=== PATIENT | male | born 1950 | race Caucasian/White ===

== ENCOUNTER 2019-10-06 03:55 | Inpatient (IN) | payer OTHER, MEDICARE ==
[~2019-10-06] VITALS: Ht 167.6 cm; Wt 58.1 kg
--- NOTE | 2019-10-06 04:00 | NUR ---
PT AAOX4. C/O N/V X2DAYS, "DARK BROWN VOMIT" PT BREATHING EVEN. VSS. PT ON MONITOR AND PULSE OX. AWAITING MD ORDERS.
--- NOTE | 2019-10-06 04:02 | NUR ---
Per patients "My has stage 4 cancer, he has been vomiting black vomit since sunday."
[2019-10-06] MEDS ORDERED: ONDANSETRON HCL/PF 4 MG/2 ML VIAL ONE (04:11)
[2019-10-06] MEDS ORDERED: MORPHINE SULFATE INJ 4 MG/ML DISP.SYRIN ONE (04:12)
[2019-10-06 04:19] LABS: BASOPHILS % (AUTO) 0.2 % (0.0-2.0); EOSINOPHILS % (AUTO) 0.1 % (0.0-6.0); HEMATOCRIT 33 % (39-51); HEMOGLOBIN 11.1 g/dL (13.5-17.5); LYMPHOCYTES % (AUTO) 12.2 % (20.0-44.0); MEAN CORPUSCULAR HGB CONC 34 g/dl (31.0-36.0); MEAN CORPUSCULAR VOLUME 94 fL (80-96); MONOCYTES % (AUTO) 11.7 % (2.0-12.0); NEUTROPHILS # (AUTO) 6.2 /CMM (1.8-8.9); NEUTROPHILS % (AUTO) 75.8 % (43.0-81.0); PLATELET COUNT (AUTO) 227 /CMM (150-450); RED BLOOD CELL COUNT(AUTO) 3.48 MIL/uL (4.5-6.0); WHITE BLOOD COUNT (AUTO) 8.1 K/uL (4.3-11.0)
--- NOTE | 2019-10-06 04:25 | NUR ---
PT BROUGHT TO CT
[2019-10-06] MEDS ORDERED: MORPHINE SULFATE INJ 2 MG/ML DISP.SYRIN IV ONE (04:30)
[2019-10-06] MEDS ORDERED: IV NS 0.9% 1,000 ML BAG IV ONE (04:30)
[2019-10-06] MEDS ORDERED: ONDANSETRON HCL/PF 4 MG/2 ML VIAL IVP ONE (04:30)
[2019-10-06 04:35] LABS: CALCIUM, SERUM 8.9 mg/dL (8.5-10.1); CARBON DIOXIDE 26 mmol/L (21-32); CHLORIDE 103 mmol/L (98-107); CREATININE 1.3 mg/dL (0.6-1.3); GLUCOSE 220 mg/dL (74-106); POTASSIUM 3.2 mmol/L (3.5-5.1); SODIUM SERUM 137 mmol/L (136-145); UREA NITROGEN, BLOOD 56 mg/dL (7-18)
--- NOTE | 2019-10-06 04:37 | NUR ---
PT EBONY BACK FROM CT
[2019-10-06 04:41] LABS: ALANINE AMINOTRANSFERASE 19 U/L (12-78); ALBUMIN 3.1 g/dL (3.4-5.0); ALKALINE PHOSPHATASE 85 U/L (46-116); ASPARTATE AMINOTRANSFERASE 17 U/L (15-37); BILIRUBIN,DIRECT 0.2 mg/dL (0.0-0.2); BILIRUBIN,TOTAL 0.9 mg/dL (0.2-1.0); LIPASE 35 U/L (73-393)
[2019-10-06] MEDS ORDERED: ONDANSETRON HCL/PF 4 MG/2 ML VIAL IVP PRN (05:30)
[2019-10-06] MEDS ORDERED: MORPHINE SULFATE INJ 2 MG/ML DISP.SYRIN IV PRN (05:30)
--- NOTE | 2019-10-06 05:30 | NUR ---
BED ASSIGNMENT 116-1
--- NOTE | 2019-10-06 05:48 | NUR ---
REPORT GIVEN TO SALVADOR FLYNN, FOR DAT.
--- NOTE | 2019-10-06 07:15 | NUR ---
RN NOTES RECEIVED PATIENT AT ABOUT 0605, AWAKE, IN NO APPARENT DISTRESS. ALERT AND ORIENTED. O2SAT 100% ON ROOM AIR TOLERATING WELL. NO COMPLAINT OF PAIN OR DISCOMFORT. VERBALLY ABLE TO COMMUNICATE NEEDS. SKIN INTACT. NEEDS ATTENDED. KEPT CLEAN AND DRY.
[2019-10-06] MEDS: IV D5/0.45 NACL 1,000 ML IV PRN (07:29)
--- NOTE | 2019-10-06 07:30 | NUR ---
MS RN OPENING NOTES RECEIVED PT LYING ON BED,ALERT/ORIENTED X4.ON ROOM AIR,TOLERATING WELL.NO SOB AND ACUTE DISTRESS NOTED.CAN AMBULATE WELL BY SELF.DENIES NAUSEA,VOMITING AND PAIN.IV LINE IS ON LEFT AC G18 WITH IV FLUID IS RUNNING.SITE IS CLEAN,DRY AND INTACT.NO INFILTRATION NOTED.BED IS IN LOW POSITION AND LOCKED,CALL LIGHT IS WITHIN REACH.WILL CONTINUE TO MONITOR THE PT CLOSELY
[2019-10-06] MEDS ORDERED: [UNRECOGNIZED DRUG - CODE] IV (07:47)
[2019-10-06] MEDS ORDERED: TRAS150V IV (07:47)
[2019-10-06 08:00] VITALS: BP 116/69
[2019-10-06] MEDS: PANTOPRAZOLE 40 MG VIAL IV SCH (08:35)
[2019-10-06] MEDS ORDERED: POTASSIUM CL. PREMIX PERIPHER. 50 ML IV SCH (10:30)
--- NOTE | 2019-10-06 11:20 | NUR ---
MS RN NOTES PT PICKED UP TO X-RAY.
[2019-10-06 11:47] LABS: MAGNESIUM 1.6 mg/dL (1.8-2.4); THYROID STIMULATING HORMONE 0.757 uIU/mL (0.358-3.74)
--- NOTE | 2019-10-06 11:50 | NUR ---
MS RN NOTES ORDERED TO INSERT N GTUBE TO ADMINISTER CONTRAST FOR SMALL BOWEL X-RAY,INSERTED AND PT TOLERATED WELL.
[2019-10-06] MEDS ORDERED: BARIUM SULFATE 98% 135 ML SUSP.RECON PO ONE (11:53)
--- NOTE | 2019-10-06 11:54 | NUR ---
MS RN NOTES PHARMACIST SAID THE MEDICINE IM THORAZINE IS NOT AVAILABLE IN PHARMACY,LEFT THE MESSAGE TO .WAITING FOR THE REPLY.
--- NOTE | 2019-10-06 13:17 | NUR ---
MS FLYNN NOTES PT CAME BACK FROM THE X-RAY. Addendum: 10/06/19 at 1409 by KEN KANG RN WITH NG TUBE,PT TOLERATED WELL.
[2019-10-06] MEDS: POTASSIUM CL. PREMIX PERIPHER. 50 ML IV SCH ×4 (13:39→19:42)
[2019-10-06 16:00] VITALS: BP 110/82
--- NOTE | 2019-10-06 18:21 | NUR ---
MS RN CLOSING NOTES PT IS LYING ON BED WITH NG TUBE,WITH IV FLUIDS.FAMILY IS AT BEDSIDE.X-RAY IS GOING THROUGH.PT TOLERATED WELL.STILL ON NPO.RESPIRATION IS EVEN AND NONLABORED.NO SIGNIFICANT CHANGES NOTED IN THE SHIFT.WILL ENDORSE TO CERTIFIED OPTICIAN RN FOR DAT.
--- NOTE | 2019-10-06 18:50 | NUR ---
MS RN NOTES PER DR CARRINGTON(ONCALL FOR ,IR)TOOK OUT THE NG TUBE ,PT TOLERATED WELL.
--- NOTE | 2019-10-06 19:24 | NUR ---
MS RN NOTES RECEIVED PT ON BED. A/O X 4. FAMILY AT BEDSIDE. ON ROOM AIR NO RESPIRATORY DISTRESS NOTED. IV ACCESS ON LAC G18 WITH POTASSIUM RUNNING @ 50CC/HR. HEAD OF BED ELEVATED. SIDE RAILS UP. CALL LIGHT WITHIN REACH. BED ALARM ON. BED IN LOW AND LOCKED POSITION. WILL MONITOR PT CLOSELY
--- NOTE | 2019-10-06 20:10 | NUR ---
MS RN NOTES CALLED PNEUMATIC TUBE OPERATOR FOR MAGNESIUM OF 1.6, PER PNEUMATIC TUBE OPERATOR ONCALL REPLACED WITH 2GM. WILL MONITOR PT CLOSELY.
[2019-10-06] MEDS ORDERED: Magnesium 1GM/D5W 100ML PREMIX PIGGYBACK IV ONE (20:30)
[2019-10-06] MEDS: Magnesium 1GM/D5W 100ML PREMIX 100 ML IV SCH ×2 (20:32→21:35)
--- NOTE | 2019-10-06 21:44 | NUR ---
MS RN NOTES CALLED RADIOLOGY DEPT FOR SMALL BOWEL XR, PER RADIOLOGY LAST XR TAKEN 0, NO MORE XR NEEDED. 2030 PT WANTS TO DRINK AND EAT. WILL FOLLOW UP WITH ONCJOSEPHINE.
[2019-10-06] MEDS ORDERED: ZOLPIDEM TARTRATE 5 MG TABLET PO ONE (22:30)
--- NOTE | 2019-10-06 22:58 | NUR ---
MS FLYNN NOTES PER HAND WRAPPER OPERATOR OKAY TO HAVE SIPS OF WATER FOR NOW, AND AMBIEN 35MG X1. PT STILL NPO, AWAITING SMALL BOWEL XR RESULTS. Addendum: 10/06/19 at 2300 by MARTIR GONZALES RN AMBIEN 5MG.
--- NOTE | 2019-10-06 23:08 | NUR ---
MS RN NOTES PT REFUSED IVF. EXPLAINED RISK AND BENEFITS. PT STILL REFUSED. PER PT RESUME IT IN AM.
[2019-10-07 04:00] VITALS: BP 103/76
[2019-10-07 06:17] VITALS: BP 96/69
[2019-10-07 06:39] LABS: ALBUMIN 2.5 g/dL (3.4-5.0); BASOPHILS % (AUTO) 0.4 % (0.0-2.0); BILIRUBIN,TOTAL 0.5 mg/dL (0.2-1.0); CALCIUM, SERUM 7.9 mg/dL (8.5-10.1); EOSINOPHILS % (AUTO) 1.5 % (0.0-6.0); HEMATOCRIT 22 % (39-51); HEMOGLOBIN 7.7 g/dL (13.5-17.5); LYMPHOCYTES # (AUTO) 0.9 /CMM (0.8-4.8); LYMPHOCYTES % (AUTO) 12.1 % (20.0-44.0); MAGNESIUM 2.1 mg/dL (1.8-2.4); MEAN CORPUSCULAR HGB CONC 35 g/dl (31.0-36.0); MEAN CORPUSCULAR VOLUME 93 fL (80-96); MONOCYTES # (AUTO) 1.3 /CMM (0.1-1.30); NEUTROPHILS # (AUTO) 5.1 /CMM (1.8-8.9); PHOSPHORUS 1.6 mg/dL (2.5-4.9); PLATELET COUNT (AUTO) 180 /CMM (150-450); POTASSIUM 3.5 mmol/L (3.5-5.1); RED BLOOD CELL COUNT(AUTO) 2.41 MIL/uL (4.5-6.0); WHITE BLOOD COUNT (AUTO) 7.4 K/uL (4.3-11.0)
[2019-10-07 07:00] LABS: THYROID STIMULATING HORMONE 0.664 uIU/mL (0.358-3.74)
--- NOTE | 2019-10-07 07:27 | NUR ---
MS RN CLOSING PATIENT IN BED ASLEEP. NO SIGNS OF ANY DISTRESS OR COMPLAINT OF PAIN. PATIENT IS A/O X4. IV RUNNING WITH D51/2NS WITH NO SIGN OF OBSTRUCTION. ALL SAFETY PRECAUTIONS HAVE BEEN APPLIED. ENDORSED PATIENT TO MORNING SHIFT NURSE FOR DAT.
--- NOTE | 2019-10-07 07:58 | NUR ---
MS RN NOTES RECEIVED PT ON BED. RESTING COMFORTABLY IN BED AT THIS TIME ON ROOM AIR NO RESPIRATORY DISTRESS NOTED. IV ACCESS ON LAC G18 WITH IVF ORDERED HEAD OF BED ELEVATED. SIDE RAILS UP. CALL LIGHT WITHIN REACH. BED ALARM ON. BED IN LOW AND LOCKED POSITION. WILL MONITOR PT CLOSELY , STILL NPO TILL FURTHER ORDERS
[2019-10-07 08:00] VITALS: BP 99/65
[2019-10-07 08:22] LABS: NEUTROPHILS % (MANUAL) 68 (42-76)
[2019-10-07 08:23] LABS: LYMPHOCYTES % (MANUAL) 15 % (16-48); MONOCYTES % (MANUAL) 17 % (0-11.0)
[2019-10-07] MEDS: PANTOPRAZOLE 40 MG VIAL IV SCH (08:47)
[2019-10-07] MEDS: IV D5/0.45 NACL 1,000 ML IV PRN (08:48)
--- NOTE | 2019-10-07 09:30 | NUR ---
ms rn note per rain ok to have clear liquid diet aware follow throu result
[2019-10-07] MEDS ORDERED: POTASSIUM PHOSPHATE MM 15 MMOL in IV D5W 250 ML IV SCH (10:00)
[2019-10-07] MEDS: IV NS 0.9% 1,000 ML IV PRN (10:16)
[2019-10-07] MEDS: POTASSIUM PHOSPHATE MM 7.5 MMOL in IV D5W 100 ML IV SCH ×2 (10:26→13:30)
[2019-10-07 10:48] LABS: IRON, SERUM 45 ug/dl (50-175); TOTAL IRON BINDING CAPACITY 227 ug/dl (250-450)
[2019-10-07 11:00] LABS: FERRITIN 126 ng/mL (8-388)
--- NOTE | 2019-10-07 12:00 | NUR ---
MS RN NOTE PER DAVID OK TO HAVE SHOWER
[2019-10-07] MEDS: NYSTATIN (PYXIS) 500,000 UNIT/5 ML ORAL.SUSP PO SCH ×3 (13:06→22:00)
--- NOTE | 2019-10-07 13:09 | NUR ---
CARPET BINDER NOTE DAVID DNP AWARE THAT PATIENT HAS WHITE COLOR TONGUE WITH NEW ORDER GIVEN AT BEDSIDE
--- NOTE | 2019-10-07 15:04 | NUR ---
MS RN NOTE DAVID GUARDADO AWARE MARKY HG TODAY 7.7 WITH ORDER GI CONSULT, SPOKE WITH ZACHARY FLYNN TIRE RECAPPING MACHINE OPERATOR GI GI STATAED THAT WILL COME SOON
[2019-10-07 16:00] VITALS: BP 91/55
--- NOTE | 2019-10-07 16:05 | NUR ---
MS RN NOTE CONSENT FOR EGD OBTAINED ORDERED , AT BEDSIDE
--- NOTE | 2019-10-07 18:02 | NUR ---
MS FLYNN NOTE CALLED ZACHARY FLYNN COLORED LIQUID PLASTIC APPLIER FOR GI CONSULT STATED WILL BE SOON
--- NOTE | 2019-10-07 18:46 | NUR ---
ms rn note brenda lozada dope pourer gi at bedside aware that patient has hiccups stated that will check it out with primary care doctor
--- NOTE | 2019-10-07 18:58 | NUR ---
ms rn note stool for ob collected as ordered ,keep clean dry
[2019-10-07 19:15] LABS: OCCULT BLOOD STOOL POSITIVE (NEGATIVE)
[2019-10-07 20:00] VITALS: BP 90/65
--- NOTE | 2019-10-07 20:31 | NUR ---
RN OPENING NOTES RECEIVED REPORT FROM LUIS FLYNN. PATIENT A/A/O X4, ABLE TO VERBALIZE NEEDS. BREATHING EVEN & UNLABORED, TOLERATING ROOM AIR. DENIES ANY SOB OR DIFFICULTY BREATHING. RADIAL PULSES PRESENT. LEFT AC IV #18 INTACT & PATENT W/ DRESSING CDI & IVF D5 1/2 NS INFUSING WELL @ 100 ML/HR. LEFT CHEST WALL PORT-A-CATH W/ NO S/S OF INFECTION NOTED. DENIES ANY PAIN OR DISCOMFORT @ THIS TIME. SAFETY MEASURES IN PLACE W/ SIDE RAILS UP & CALL LIGHT PLACED WITHIN REACH. ABLE TO AMBULATE INDEPENDENTLY BUT INSTRUCTED TO CALL FOR ASSISTANCE. WILL CONTINUE TO MONITOR.
--- NOTE | 2019-10-07 21:15 | NUR ---
RN NOTES PATIENT REQUESTED FOR AMBIEN BUT NO AMBIEN CURRENTLY ORDERED. SPOKE TO DR. HENNESSY & RECEIVED NEW ORDER FOR AMBIEN 5MG PRN. NEW ORDER NOTED & CARRIED OUT.
[2019-10-07] MEDS: ZOLPIDEM TARTRATE 5 MG TABLET PO PRN (22:01)
[2019-10-08] VITALS (7 sets, daily range): BP systolic 83–111; BP diastolic 50–73
[2019-10-08 05:28] LABS: BASOPHILS % (AUTO) 0.3 % (0.0-2.0); LYMPHOCYTES # (AUTO) 0.6 /CMM (0.8-4.8); LYMPHOCYTES % (AUTO) 11.6 % (20.0-44.0); MEAN CORPUSCULAR HGB CONC 34 g/dl (31.0-36.0); MEAN CORPUSCULAR VOLUME 95 fL (80-96); MONOCYTES % (AUTO) 19.1 % (2.0-12.0); NEUTROPHILS # (AUTO) 3.4 /CMM (1.8-8.9); PLATELET COUNT (AUTO) 150 /CMM (150-450); WHITE BLOOD COUNT (AUTO) 5.2 K/uL (4.3-11.0)
[2019-10-08] MEDS: IV NS 0.9% 1,000 ML IV PRN ×2 (05:28→17:38)
[2019-10-08 05:42] LABS: RED BLOOD CELL COUNT(AUTO) 1.96 MIL/uL (4.5-6.0)
[2019-10-08 05:44] LABS: ALBUMIN 2.4 g/dL (3.4-5.0); BILIRUBIN,TOTAL 0.7 mg/dL (0.2-1.0); CALCIUM, SERUM 7.5 mg/dL (8.5-10.1); HEMATOCRIT 19 % (39-51); HEMOGLOBIN 6.3 g/dL (13.5-17.5); MAGNESIUM 1.9 mg/dL (1.8-2.4); PHOSPHORUS 2.5 mg/dL (2.5-4.9); POTASSIUM 3.3 mmol/L (3.5-5.1); TOTAL PROTEIN, SERUM 4.5 g/dL (6.4-8.2)
--- NOTE | 2019-10-08 05:45 | NUR ---
RN NOTES PATIENT'S H/H = 6.3. RELAYED RESULTS TO DR. HENNESSY & RECEIVED NEW ORDER TO TRANSFUSE 1 UNIT PRBC & RECHECK H/H 2 HOURS AFTER. NEW ORDERS NOTED & CARRIED OUT.
[2019-10-08 06:13] LABS: EOSINOPHILS % (MANUAL) 2 % (0-4); NEUTROPHILS % (MANUAL) 72 (42-76)
[2019-10-08 06:14] LABS: MONOCYTES % (MANUAL) 12 % (0-11.0)
[2019-10-08 06:15] LABS: LYMPHOCYTES % (MANUAL) 13 % (16-48)
--- NOTE | 2019-10-08 07:00 | NUR ---
RN MS OPENING NOTES PATIENT RECEIVED FROM PM SHIFT. PATIENT IS ASLEEP BUT EASILY AROUSED WITH TOUCH AND NAME . PATIENT IS AO X4 . BREATHING UN [place], TOLERATING ROOM AIR. PATIENT DENYIES ANY SOB OR DIFFICULTY BREATHING . PATIENT LEFT AC 18 W/ DRESSING CDI AND IVF INFUSION WELL AT 100 ML/HR . LEFT CHEST WALL PORT A CATH WITH NO SIGNS OF INFECTION NOTED . PATIENT DENIES ANY PAIN OR DISCOMFORT. SAFETY MEASURES IN PLACE. CALL LIGHT WITH IN REACH SAFETY MAINTAINED WILL CONTINUE TO MONITOR
--- NOTE | 2019-10-08 07:30 | NUR ---
MS CLOSING NOTES PATIENT RECEIVED BY PM SHIFT. PATIENT IS AWAKE. A0 X4 PATIENT IN ON ROOM AIR TOLERATING. NO SIGNS OF RESPIRATORY DISTRESS PATIENT DENIES SOB. DURING SHIFT PATIENT RECIVED 1 UNIT OF BLOOD 6.3 - TO 8.0 . PATIENTS SHOWS NO SIGNS ACTIVE BLEEDING . PATIENT WAS ALSO TOLERATING CLEAR LIQUID DIET WELL. PATIENT IS COOPERATIVE WITH CARE AND TREATMENT MANAGEMENT. PATIENTS BED LOWEST POSITON, SAFETY MAINTAINED AND CALL LIGHT WITH IN REACH
[2019-10-08] MEDS: NYSTATIN (PYXIS) 500,000 UNIT/5 ML ORAL.SUSP PO SCH ×4 (08:44→20:26)
[2019-10-08] MEDS: PANTOPRAZOLE 40 MG VIAL IV SCH (08:44)
[2019-10-08] MEDS ORDERED: POTASSIUM PHOSPHATE MM 7.5 MMOL in IV D5W 100 ML IV SCH ×2 (10:30→10:45)
[2019-10-08] MEDS ORDERED: SIMETHICONE SUSP 40 MG/0.6 ML BOTTLE ONE (11:35)
[2019-10-08] MEDS ORDERED: chlorproMAZINE HCL 25 MG TABLET PO PRN (13:00)
[2019-10-08 18:28] LABS: BASOPHILS % (AUTO) 0.3 % (0.0-2.0); EOSINOPHILS % (AUTO) 0.1 % (0.0-6.0); HEMATOCRIT 24 % (39-51); LYMPHOCYTES # (AUTO) 0.3 /CMM (0.8-4.8); LYMPHOCYTES % (AUTO) 4.7 % (20.0-44.0); MEAN CORPUSCULAR HGB CONC 34 g/dl (31.0-36.0); MEAN CORPUSCULAR VOLUME 94 fL (80-96); MONOCYTES # (AUTO) 0.3 /CMM (0.1-1.30); MONOCYTES % (AUTO) 4.3 % (2.0-12.0); NEUTROPHILS # (AUTO) 5.4 /CMM (1.8-8.9); NEUTROPHILS % (AUTO) 90.6 % (43.0-81.0); PLATELET COUNT (AUTO) 144 /CMM (150-450); RED BLOOD CELL COUNT(AUTO) 2.53 MIL/uL (4.5-6.0)
--- NOTE | 2019-10-08 19:15 | NUR ---
RN OPENING NOTES: PATIENT IN BED AWAKE AND VERBALLY RESPONSIVE. NO RESPIRATORY DISTRESS. NO PAIN. (L) AC #18 INTACT, PATENT, AND FLUSHING NS AT 100 MLS/HR. S/P BLOOD TRANSFUSION DURING AM SHIFT. NO ACTIVE BLEEDING NOTED AT THIS TIME. SAFETY PRECAUTIONS IMPLEMENTED. BED LOCKED AND IN LOWEST POSITION. CALL LIGHT PLACED WITHIN REACH. WILL CONT. TO MONITOR.
[2019-10-08] MEDS: METOCLOPRAMIDE HCL 10 MG/2 ML VIAL IV SCH (20:03)
[2019-10-08] MEDS: ZOLPIDEM TARTRATE 5 MG TABLET PO PRN (21:35)
[2019-10-09] MEDS: METOCLOPRAMIDE HCL 10 MG/2 ML VIAL IV SCH ×3 (01:48→12:38)
[2019-10-09 04:00] VITALS: BP 105/72
[2019-10-09 07:04] LABS: HEMATOCRIT 21 % (39-51); HEMOGLOBIN 7.2 g/dL (13.5-17.5); MEAN CORPUSCULAR HGB CONC 35 g/dl (31.0-36.0); MEAN CORPUSCULAR VOLUME 92 fL (80-96); RED BLOOD CELL COUNT(AUTO) 2.24 MIL/uL (4.5-6.0); WHITE BLOOD COUNT (AUTO) 5.5 K/uL (4.3-11.0)
[2019-10-09 07:05] LABS: BASOPHILS % (AUTO) 0.1 % (0.0-2.0); LYMPHOCYTES # (AUTO) 0.4 /CMM (0.8-4.8); LYMPHOCYTES % (AUTO) 6.6 % (20.0-44.0); MONOCYTES # (AUTO) 0.6 /CMM (0.1-1.30); MONOCYTES % (AUTO) 10.3 % (2.0-12.0); NEUTROPHILS # (AUTO) 4.6 /CMM (1.8-8.9); PLATELET COUNT (AUTO) 136 /CMM (150-450)
--- NOTE | 2019-10-09 07:10 | NUR ---
RN CLOSING NOTES: PATIENT ASLEEP BUT EASILY AROUSABLE. A/OX4. NO RESPIRATORY DISTRESS. NO PAIN. NO ACTIVE BLEEDING. ENDORSED TO AM SHIFT NURSE FOR CONTINUITY OF CARE.
[2019-10-09 07:37] LABS: CALCIUM, SERUM 7.8 mg/dL (8.5-10.1); CREATININE 0.8 mg/dL (0.6-1.3); POTASSIUM 3.1 mmol/L (3.5-5.1)
[2019-10-09 08:00] VITALS: BP 89/60
[2019-10-09] MEDS: NYSTATIN (PYXIS) 500,000 UNIT/5 ML ORAL.SUSP PO SCH ×2 (08:06→12:38)
[2019-10-09] MEDS: PANTOPRAZOLE 40 MG VIAL IV SCH (08:06)
[2019-10-09 10:48] VITALS: BP 106/71
[2019-10-09] MEDS ORDERED: PANTOPRAZOLE 40 MG VIAL IV SCH (11:00)
[2019-10-09] MEDS: IV NS 0.9% 1,000 ML IV PRN (12:38)
[2019-10-09] MEDS: POTASSIUM CL. PREMIX PERIPHER. 50 ML IV SCH ×2 (12:38→14:42)
[2019-10-09 12:39] LABS: HEMATOCRIT 22 % (39-51); HEMOGLOBIN 7.6 g/dL (13.5-17.5); LYMPHOCYTES # (AUTO) 0.6 /CMM (0.8-4.8); LYMPHOCYTES % (AUTO) 7.4 % (20.0-44.0); MEAN CORPUSCULAR HGB CONC 35 g/dl (31.0-36.0); MEAN CORPUSCULAR VOLUME 92 fL (80-96); MONOCYTES # (AUTO) 1.2 /CMM (0.1-1.30); MONOCYTES % (AUTO) 14.9 % (2.0-12.0); NEUTROPHILS # (AUTO) 6.2 /CMM (1.8-8.9); NEUTROPHILS % (AUTO) 77.7 % (43.0-81.0); PLATELET COUNT (AUTO) 151 /CMM (150-450); RED BLOOD CELL COUNT(AUTO) 2.39 MIL/uL (4.5-6.0); WHITE BLOOD COUNT (AUTO) 7.9 K/uL (4.3-11.0)
[2019-10-09 16:00] VITALS: BP 110/66
--- NOTE | 2019-10-09 17:00 | NUR ---
RN DC NOTE RECEIVED ORDER FOR DC TO HOME, APT SCHEDULED AT [facility] FOR TOMORROW AM. PRESCRIPTION PROVIDED TO PATIENT. NO WOUND PICTURES TAKEN. DC EDUCATION PROVIDED. BELONGINGS CHECKLIST SIGNED. CD GIVEN TO PATIENT. ALL TESTS + CONSULTS GIVEN. PRIVATE CAR WITH . AMBULATED OUT OF UNIT. REPORTED BOWEL MOVEMENT LAST NIGHT, BLACK, FORMED. VITALS STABLE UPON DC. NO SOB, N/V OR CHEST PAIN. PATIENT SAYS HE "FEELS FINE". IV CATH REMOVED INTACT, NO BLEEDING.
== END 2019-10-09 18:00 | disposition home or self-care (01) | DRG 377 ==
LOC: ER 03:56 → MEDSG1 05:33
PROVIDERS: ADMIT Family Medicine; ATTEND Nurse Practitioner Acute Care
PROC: 0D748ZZ Dilation of Esophagogastric Junction, Via Natural or Artificial Opening Endoscopic (ICD-10-PCS; principal; 2019-10-08)
PROC: 30233N1 Transfusion of Nonautologous Red Blood Cells into Peripheral Vein, Percutaneous Approach (ICD-10-PCS; principal; 2019-10-08)
DX: K92.2 Gastrointestinal hemorrhage, unspecified (principal); N17.0 Acute kidney failure with tubular necrosis; C15.9 Malignant neoplasm of esophagus, unspecified; K56.7 Ileus, unspecified; B37.0 Candidal stomatitis; K22.2 Esophageal obstruction; I48.91 Unspecified atrial fibrillation; T45.1X5A Adverse effect of antineoplastic and immunosuppressive drugs, initial encounter; Y92.009 Unspecified place in unspecified non-institutional (private) residence as the place of occurrence of the external cause; E87.6 Hypokalemia; D64.9 Anemia, unspecified; E83.39 Other disorders of phosphorus metabolism; E83.51 Hypocalcemia; E88.09 Other disorders of plasma-protein metabolism, not elsewhere classified; K59.00 Constipation, unspecified; K31.89 Other diseases of stomach and duodenum; Z79.899 Other long term (current) drug therapy; K31.84 Gastroparesis; Z91.81 History of falling
CPT/HCPCS: 36415; 71045-TC; 74018; 74250-TC; 80048-TC; 80053-TC; 80061-TC; 80076-TC; 82272-TC; 82728-TC; 83540-TC; 83690-TC; 83735-TC; 84100-TC; 84439-TC; 84443-TC; 84484-TC; 85025-TC; 85730-TC; 86850-TC; 86921-TC; 87081-TC; 93307-TC; A4570; C1726; C9113; G0378; J0330; J1100; J2270; J2405; J2704; J2765; J3230; J3475; J3480; J3490; J7030; J7040; J7060; P9016-BL; Q0161